=== PATIENT | female | born 1985 | race African-American/Black ===

== ENCOUNTER 2018-11-19 09:15 | Inpatient (IN) | payer OTHER ==
[2018-11-19] MEDS ORDERED: BUTORPHANOL TARTRATE 1 MG/ML VIAL IVPB ONE (09:41)
[2018-11-19] MEDS ORDERED: PROMETHAZINE HCL 25 MG/1 ML VIAL IVPUSH ONE (09:41)
[2018-11-19 10:25] LABS: BASO % 0.6 % (0-2.0); HEMATOCRIT 29.6 % (32.4-45.2); HEMOGLOBIN 9.8 GM/dL (10.7-15.3); LYMPH % 17.1 % (8-40); MCH 23.7 pg (25.7-33.7); MCHC 33.1 g/dl (32.0-36.0); MEAN CELL VOLUME 71.6 fl (80-96); MEAN PLT VOLUME 7.8 fl (7.5-11.1); MONO % 6.8 % (3.8-10.2); NEUT % 73.5 % (42.8-82.8); PLATELET COUNT 215 K/MM3 (134-434); RBC 4.13 M/mm3 (3.60-5.2); RDW 15.7 % (11.6-15.6); WHITE BLOOD COUNT 7.6 K/mm3 (4.0-10.0)
[2018-11-19] MEDS: ELECTROLYTE-148 SOLN 1,000 ML IV SCH ×2 (10:30→23:00)
[2018-11-19 10:34] VITALS: BMI 28.4
[2018-11-19] MEDS ORDERED: OXYTOCIN 10 UNITS/ML VIAL ONE (10:41)
[2018-11-19] MEDS ORDERED: OXYTOCIN 20 UNITS in 0.9% NS 20 UNIT/1,000 ML INFUS.BAG IV ONE (10:41)
[2018-11-19 10:42] LABS: INR 0.98 (0.83-1.09); PROTHROMBIN TIME (PATIENT) 11.6 SEC (9.7-13.0)
[2018-11-19 10:45] LABS: ACTIVATED PTT 24.1 SECONDS (25.2-36.5)
[2018-11-19 10:47] LABS: ANION GAP 9 MMOL/L (8-16); BLOOD UREA NITROGEN 11 mg/dL (7-18); CALCIUM 8.3 mg/dL (8.5-10.1); CHLORIDE 109 mmol/L (98-107); CO2 21 mmol/L (21-32); CREATININE 0.6 mg/dL (0.55-1.3); GLUCOSE,RANDOM 109 mg/dL (74-106); SODIUM 139 mmol/L (136-145)
[2018-11-19] MEDS ORDERED: OXYTOCIN 30 UNITS in 0.9% NS 30 UNIT/500 ML INFUS.BAG IVPB SCH (11:30)
--- NOTE | 2018-11-19 12:11 | HP ---
Past Medical History - Admission Chief Complaint: here for induction of labor History of Present Illness: 33 y/o with SIUP at 39.4 weeks here for elective IOL. complicated only by AMA. GBS negative. Did not complete 1'GTT, checked BGM at home for 1 week, all values WNL. History Source: Patient Limitations to Obtaining History: No Limitations - Past Medical History Cardiovascular: No: HTN Pulmonary: No: COPD Gastrointestinal: No: GERD Hepatobiliary: No: Hepatitis B, Hepatitis C Reproductive: No: Endometriosis, Fibroids ...: 6 ...Para: 4 ...Term: 4 ...Spon : 1 ...LMP: 02/15/18 ... Weeks Gestation by Dates: 39.4 ...EDC by Dates: 11/22/18 ...EDC by Sono: 11/24/18 Heme/Onc: No: Anemia Infectious Disease: No: HIV Psych: No: Bipolar, Depression - Past Surgical History Past Surgical History: Yes: None Hx Myomectomy: No Hx Transabdominal Cerclage: No - Smoking History Smoking history: Never smoked Have you smoked in the past 12 months: No - Alcohol/Substance Use Hx Alcohol Use: No - Social History History of Recent Travel: No Home Medications - Allergies Allergies/Adverse Reactions: Allergies Allergy/AdvReac Type Severity Reaction Status Date / Time No Known Allergies Allergy Verified 11/19/18 10:38 - Home Medications Home Medications: Ambulatory Orders Tablet 1 tab PO DAILY 11/19/18 Physical Exam - Maternity Vital Signs: Vital Signs Temperature 98.3 F 11/19/18 10:24 Pulse Rate 106 H 11/19/18 11:00 Respiratory Rate 20 11/19/18 11:00 Blood Pressure 108/64 11/19/18 11:00 O2 Sat by Pulse Oximetry (%) Constitutional: Yes: Well Nourished, No Distress, Calm Eyes: Yes: Conjunctiva Clear, EOM Intact HENT: Yes: Atraumatic, Normocephalic Neck: Yes: Supple, Trachea Midline Cardiovascular: Yes: Regular Rate and Rhythm Lungs: Clear to auscultation - Abdominal Exam/OB Fundal Height: 39 Number of Fetuses: Single Presentation: Vertex Contractions: Yes Regularity: Irregular Intensity: Mild Category: I Accelerations: Uniform Decelerations: None - Vaginal Exam/OB Vaginal Bleediing: No Amniotic Membrane Status: Intact Presentation: Vertex/Position Station: -2 - Physical Exam Edema: No Psychiatric: Yes: Alert, Oriented - Labs Lab Results: CBC, BMP 11/19/18 10:10 11/19/18 10:10 Hemorrhage Risk Assessment - Risk Factors Medium Risk Factors: Yes: None High Risk Factors: Yes: None Risk Score: 1 Risk Level: Medium Risk Problem List - Problems (1) Encounter for vaginal delivery Code(s): O80 - ENCOUNTER FOR FULL-TERM UNCOMPLICATED DELIVERY (2) Elective induction of labor planned Code(s): UGE7809 - (3) Advanced maternal age in Code(s): AAF6427 - Assessment/Plan 33 y/o P4 female with SIUP at 39.4 weeks, elective IOL FHTs act 1 IOL, pitocin started GBS negative anticipate
[2018-11-19] MEDS ORDERED: FENTANYL/BUPIVACAINE/NS/PF - PCEA - 50 ML DISP.SYRIN EP ONE ×2 (19:48→23:53)
[2018-11-19] MEDS ORDERED: NALOXONE HCL 0.4 MG/ML VIAL IVPUSH PRN (19:50)
[2018-11-19] MEDS ORDERED: BUPIVACAINE HCL/PF 0.25% (2.5MG/ML) 10 ML VIAL ONE (19:51)
[2018-11-19] MEDS ORDERED: LIDO 2%/EPI 1:200000 PRESRVFRE (20 ML SDVIAL) ONE (19:51)
[2018-11-19] MEDS ORDERED: FENTANYL/BUPIVACAINE/NS/PF - PCEA - 50 ML DISP.SYRIN EP SCH (20:00)
--- NOTE | 2018-11-19 20:06 | PN ---
Ante-Partal Exam - Subjective Subjective: Pt feeling more pain with contractions, no LOF/VB. FHTS cat 1 Vital Signs: Vital Signs Temperature 98.3 F 11/19/18 14:00 Pulse Rate 88 11/19/18 17:00 Respiratory Rate 20 11/19/18 17:00 Blood Pressure 116/66 11/19/18 17:00 O2 Sat by Pulse Oximetry (%) Bleeding: No Headache: No Visual changes: No Right upper quadrant pain: No Pain (scale 1-10): 4 - Contractions Contractions: Yes Regularity: Regular Intensity: Mild/Mod Monitor Mode: External - Exam during Labor Heart Rate: 130 Variability: Moderate Category: I Monitor Accelerations: Present Monitor Decelerations: None Exam: Vaginal Dilatation (cm): 3 Effacement (%): 50 Amniotic Membrane Status: Intact Presentation: Vertex Station: -2 - Assessment/Plan Assessment/Plan: IUP at 39.4 weeks, IOL continue pitocin for epidural then AROM continue active management
[2018-11-19] MEDS: ACETAMINOPHEN 325 MG TABLET (FP) PO PRN (20:40)
--- NOTE | 2018-11-19 20:41 | PN ---
Ante-Partal Exam - Subjective Subjective: Pt comfortable with epidural. Slight headache. Vital Signs: Vital Signs Temperature 98.3 F 11/19/18 14:00 Pulse Rate 95 H 11/19/18 20:05 Respiratory Rate 18 11/19/18 20:05 Blood Pressure 112/68 11/19/18 20:05 O2 Sat by Pulse Oximetry (%) 100 11/19/18 20:05 Bleeding: No Headache: No Visual changes: No Right upper quadrant pain: No - Contractions Contractions: Yes Regularity: Regular Intensity: Mod/Strong - Exam during Labor Heart Rate: 130 Variability: Moderate Category: I Monitor Accelerations: Present Monitor Decelerations: None Exam: Vaginal Dilatation (cm): 4 Effacement (%): 50 Amniotic Membrane Status: Ruptured Presentation: Vertex Station: -2 - Assessment/Plan Assessment/Plan: elective labor induction s/p AROM at this check for clear fluid continue pitocin s/p epidural continue current management
[2018-11-19] MEDS ORDERED: TUBERCULIN PPD 5 TU/0.1ML SYRINGE (IN PATIENT USE ONLY) ID ONE (21:15)
[2018-11-20] MEDS: OXYTOCIN 20 UNITS in 0.9% NS 20 UNIT/1,000 ML INFUS.BAG IV SCH ×2 (00:15→04:21)
[2018-11-20] MEDS ORDERED: OXYTOCIN 20 UNITS in 0.9% NS 20 UNIT/1,000 ML INFUS.BAG IV ONE (00:18)
--- NOTE | 2018-11-20 00:23 | PN ---
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
[2018-11-20] MEDS ORDERED: METHYLERGONOVINE MALEATE 0.2 MG/1 ML AMP IM PRN (00:24)
[2018-11-20] MEDS ORDERED: BENZOCAINE 28 GM HEMORRHOIDAL OINTMENT TP PRN (00:24)
[2018-11-20] MEDS ORDERED: BISACODYL 10 MG SUPP.RECT RC PRN (00:24)
[2018-11-20] MEDS ORDERED: BENZOCAINE 20% 57 GM BOTTLE TP PRN (00:24)
[2018-11-20] MEDS ORDERED: ACETAMINOPHEN 325 MG TABLET (FP) PO PRN (00:24)
[2018-11-20] MEDS ORDERED: WITCH HAZEL 50% (TUCKS) 40 PAD/JAR PAD TP PRN (00:24)
[2018-11-20] MEDS ORDERED: IBUPROFEN 600 MG TABLET (FP) PO ONE (01:38)
[2018-11-20] MEDS: IBUPROFEN 600 MG TABLET (FP) PO PRN ×4 (01:40→22:38)
[2018-11-20] MEDS: FERROUS SO4 325 MG TABLET (FP) PO SCH ×3 (07:17→20:37)
[2018-11-20] MEDS: ACETAMINOPHEN 325 MG TABLET (FP) PO PRN ×3 (07:17→22:39)
[2018-11-20] MEDS: PRENATAL VITAMINS W/ FOLIC ACID TABLET (FP) PO SCH (09:16)
[2018-11-21 06:38] LABS: BASO % 0.5 % (0-2.0); EOS % 4.3 % (0-4.5); HEMATOCRIT 25.4 % (32.4-45.2); HEMOGLOBIN 8.3 GM/dL (10.7-15.3); MCH 23.5 pg (25.7-33.7); MCHC 32.8 g/dl (32.0-36.0); MEAN CELL VOLUME 71.5 fl (80-96); MEAN PLT VOLUME 7.9 fl (7.5-11.1); MONO % 7.7 % (3.8-10.2); NEUT % 55.5 % (42.8-82.8); PLATELET COUNT 175 K/MM3 (134-434); RBC 3.55 M/mm3 (3.60-5.2); RDW 15.5 % (11.6-15.6); WHITE BLOOD COUNT 9.2 K/mm3 (4.0-10.0)
[2018-11-21 08:21] VITALS: BP 104/61; PULSE 75; TEMP 97.7
[2018-11-21] MEDS: FERROUS SO4 325 MG TABLET (FP) PO SCH ×2 (08:33→12:00)
[2018-11-21] MEDS: PRENATAL VITAMINS W/ FOLIC ACID TABLET (FP) PO SCH (09:30)
--- NOTE | 2018-11-21 12:51 | PN ---
Post Progress Note - Subjective Subjective: PT doing well, no complaints. Desires to go home today. Ambulating, voiding, passing flatus, tolerating diet. VB minimal. Type of Delivery: Vital Signs: Vital Signs Temperature 97.7 F 11/21/18 08:17 Pulse Rate 75 11/21/18 08:17 Respiratory Rate 20 11/21/18 08:17 Blood Pressure 104/61 11/21/18 08:17 O2 Sat by Pulse Oximetry (%) 99 11/20/18 00:00 Uterus: Yes: Fundus Firm Abdomen/GI: Yes: Abdomen soft Lochia, amount: Small Extremities: Yes: Calves non-tender Perineum: Yes: Intact Activity: Ambulating - Labs Labs: CBC WBC 9.2 K/mm3 (4.0-10.0) 11/21/18 06:00 RBC 3.55 M/mm3 (3.60-5.2) L 11/21/18 06:00 Hgb 8.3 GM/dL (10.7-15.3) L 11/21/18 06:00 Hct 25.4 % (32.4-45.2) L 11/21/18 06:00 MCV 71.5 fl (80-96) L 11/21/18 06:00 MCH 23.5 pg (25.7-33.7) L 11/21/18 06:00 MCHC 32.8 g/dl (32.0-36.0) 11/21/18 06:00 RDW 15.5 % (11.6-15.6) 11/21/18 06:00 Plt Count 175 K/MM3 (134-434) 11/21/18 06:00 MPV 7.9 fl (7.5-11.1) 11/21/18 06:00 Absolute Neuts (auto) 5.1 K/mm3 (1.5-8.0) 11/21/18 06:00 Neutrophils % 55.5 % (42.8-82.8) D 11/21/18 06:00 Lymphocytes % 32.0 % (8-40) D 11/21/18 06:00 Monocytes % 7.7 % (3.8-10.2) 11/21/18 06:00 Eosinophils % 4.3 % (0-4.5) D 11/21/18 06:00 Basophils % 0.5 % (0-2.0) 11/21/18 06:00 Nucleated RBC % 0 % (0-0) 11/21/18 06:00 Problem List - Problems (1) Encounter for vaginal delivery Code(s): O80 - ENCOUNTER FOR FULL-TERM UNCOMPLICATED DELIVERY (2) Elective induction of labor planned Code(s): TQM7644 - (3) Advanced maternal age in Code(s): AEN2838 - Assessment/Plan 33 y/o PPD#1 s/p normal AFVSS Anemia - recheck CBC, if stable ok to go home on PO Iron routine post care
--- NOTE | 2018-11-21 12:52 | DS ---
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 Vital Signs: Vital Signs Temperature 97.7 F 11/21/18 08:17 Pulse Rate 75 11/21/18 08:17 Respiratory Rate 20 11/21/18 08:17 Blood Pressure 104/61 11/21/18 08:17 O2 Sat by Pulse Oximetry (%) 99 11/20/18 00:00 Constitutional: Yes: Well Nourished, No Distress, Calm Eyes: Yes: Conjunctiva Clear, EOM Intact HENT: Yes: Atraumatic Neck: Yes: Supple Cardiovascular: Yes: Regular Rate and Rhythm Respiratory: Yes: Regular Gastrointestinal: Yes: Normal Bowel Sounds, Soft ....Post : Yes: Uterus firm Psychiatric: Yes: Alert, Oriented Labs: CBC, BMP 11/21/18 06:00 11/19/18 10:10 Delivery - Delivery Vaginal Delivery: No Problems Type of Anesthesia: Epidural Episiotomy/Laceration: None EBL (cc): 250 Delivery, Single - Stages of Labor Date 1st Stage Initiatied: 11/20/18 Time 1st Stage Initiated: 20:00 Date 2nd Stage Initiated: 11/20/18 Time 2nd Stage Initiated: 00:00 Date of Delivery: 11/20/18 Time of Delivery: 12:11 Time Placenta Delivered: 12:14 Placenta: Yes: Spontaneous - 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 Pitocin induction without complication and had uncomplicated 11/20. Pt doing well on 11/21, had anemia , given PO Iron and was discharged in stable condition. - Instructions - Home Medications Comprehensive Discharge Medication List: Ambulatory Orders Tablet 1 tab PO DAILY 11/19/18
[2018-11-21 13:16] LABS: BASO % 0.3 % (0-2.0); EOS % 1.7 % (0-4.5); HEMATOCRIT 28.4 % (32.4-45.2); HEMOGLOBIN 9.2 GM/dL (10.7-15.3); LYMPH % 19.4 % (8-40); MCH 23.4 pg (25.7-33.7); MCHC 32.5 g/dl (32.0-36.0); MEAN CELL VOLUME 71.8 fl (80-96); MEAN PLT VOLUME 7.7 fl (7.5-11.1); MONO % 5.2 % (3.8-10.2); NEUT % 73.4 % (42.8-82.8); PLATELET COUNT 202 K/MM3 (134-434); RBC 3.95 M/mm3 (3.60-5.2); RDW 15.8 % (11.6-15.6); WHITE BLOOD COUNT 8.4 K/mm3 (4.0-10.0)
[2018-11-21] MEDS: IBUPROFEN 600 MG TABLET (FP) PO PRN (13:49)
[2018-11-21] MEDS: ACETAMINOPHEN 325 MG TABLET (FP) PO PRN (13:49)
[2018-11-21] MEDS ORDERED: SENNOSIDES/DOCUSATE COMBO (SENNA PLUS) TABLET (UD) PO PRN (22:00)
== END 2018-11-21 16:00 | disposition home or self-care (01) | DRG 560 ==
LOC: JLDR 09:15 → J3W 11-20 02:10
PROVIDERS: ADMIT Obstetrics & Gynecology; ATTEND Obstetrics & Gynecology
PROC: 10E0XZZ Delivery of Products of Conception, External Approach (ICD-10-PCS; principal; 2018-11-20)
PROC: 3E033VJ Introduction of Other Hormone into Peripheral Vein, Percutaneous Approach (ICD-10-PCS; 2018-11-20)
DX: O99.02 Anemia complicating childbirth (principal); D64.9 Anemia, unspecified; Z3A.39 39 weeks gestation of pregnancy; Z37.0 Single live birth
CPT/HCPCS: 36415; 59409; 80048; 85025; 85610; 85730; 86593; 86850; 86900; 86901

== ENCOUNTER 2024-02-01 12:18 | Emergency (ER) | payer OTHER ==
[2024-02-01 12:58] VITALS: BMI 25.7
[2024-02-01] MEDS ORDERED: ACETAMINOPHEN INJECTION 100 ML IVPB ONE (13:38)
[2024-02-01] MEDS ORDERED: METOCLOPRAMIDE HCL INJECTION 10 MG/2 ML VIAL ONE (13:38)
[2024-02-01] MEDS: ACETAMINOPHEN 1000 MG/100 ML BAG IVPB ONE (14:09)
[2024-02-01] MEDS: METOCLOPRAMIDE HCL INJECTION 10 MG/2 ML VIAL IVPB ONE (14:09)
[2024-02-01] MEDS: SODIUM CHLORIDE 1,000 ML IV STA (14:09)
[2024-02-01 14:17] LABS: BASO % 0.9 % (0-2.0); EOS % 5.3 % (0-4.5); HEMATOCRIT 36.7 % (32.4-45.2); HEMOGLOBIN 11.7 GM/dL (10.7-15.3); MCH 22.3 pg (25.7-33.7); MCHC 31.9 g/dl (32.0-36.0); MEAN CELL VOLUME 69.8 fl (80-96); MEAN PLT VOLUME 7.6 fl (7.5-11.1); NEUT % 59.8 % (42.8-82.8); PLATELET COUNT 309 10^3/uL (134-434); RBC 5.25 M/mm3 (3.60-5.2); RDW 15.2 % (11.6-15.6); WHITE BLOOD COUNT 7.6 K/mm3 (4.0-10.0)
[2024-02-01 14:23] LABS: INR 0.89 (0.83-1.09); PROTHROMBIN TIME (PATIENT) 10.3 SEC (9.7-13.0)
[2024-02-01 14:26] LABS: ACTIVATED PTT 29.3 SECONDS (25.2-36.5)
[2024-02-01 14:34] LABS: POTASSIUM 3.9 mmol/L (3.5-5.1)
[2024-02-01 14:36] LABS: CALCIUM 9.3 mg/dL (8.5-10.1)
[2024-02-01 14:37] LABS: ALBUMIN 3.7 g/dl (3.4-5.0); BLOOD UREA NITROGEN 11.3 mg/dL (7-18)
[2024-02-01 14:40] LABS: CREATININE 0.6 mg/dL (0.55-1.3)
[2024-02-01 14:42] LABS: BILIRUBIN,TOTAL 0.5 mg/dL (0.2-1); TOT PROT 7.6 g/dl (6.4-8.2)
[2024-02-01] MEDS ORDERED: KETOROLAC TROMETHAMINE 15 MG/ML VIAL ONE (16:59)
[2024-02-01] MEDS: KETOROLAC TROMETHAMINE 15 MG/ML VIAL IVPUSH ONE (17:03)
[2024-02-01] MEDS ORDERED: PROCHLORPERAZINE INJECTION 10 MG/2 ML VIAL ONE (17:31)
[2024-02-01] MEDS: PROCHLORPERAZINE INJECTION 10 MG/2 ML VIAL IVPB ONE (17:51)
[2024-02-01 18:29] VITALS: BP 109/77; PULSE 70; RESP 16; TEMP 98.5
== END 2024-02-01 18:29 | disposition home or self-care (01) ==
LOC: JER 12:18
PROC: 3E033NZ Introduction of Analgesics, Hypnotics, Sedatives into Peripheral Vein, Percutaneous Approach (ICD-10-PCS; principal; 2024-02-01)
PROC: 3E0333Z Introduction of Anti-inflammatory into Peripheral Vein, Percutaneous Approach (ICD-10-PCS; 2024-02-01)
PROC: 3E033GC Introduction of Other Therapeutic Substance into Peripheral Vein, Percutaneous Approach (ICD-10-PCS; 2024-02-01)
PROC: 3E033GC Introduction of Other Therapeutic Substance into Peripheral Vein, Percutaneous Approach (ICD-10-PCS; 2024-02-01)
PROC: 3E0337Z Introduction of Electrolytic and Water Balance Substance into Peripheral Vein, Percutaneous Approach (ICD-10-PCS; 2024-02-01)
DX: R51.9 Headache, unspecified (principal); H53.149 Visual discomfort, unspecified; R11.2 Nausea with vomiting, unspecified; R06.02 Shortness of breath; R42 Dizziness and giddiness; Z20.822 Contact with and (suspected) exposure to COVID-19
CPT/HCPCS: 0241U-QW; 36415; 70450-TC; 71046-TC-FY; 80053; 84484; 84703; 85025; 85610; 85730; 93005; 93010; 99285-25; J0131

== ENCOUNTER 2024-03-20 22:02 | Emergency (ER) | payer OTHER ==
[2024-03-20 22:15] VITALS: BP 104/70; PULSE 78; RESP 18; TEMP 98.3; BMI 25.6
== END 2024-03-21 02:25 | disposition home or self-care (01) ==
LOC: JER 22:02
DX: I83.91 Asymptomatic varicose veins of right lower extremity (principal)
CPT/HCPCS: 93971-TC; 99284-25